=== PATIENT | female | born 2000 | race Caucasian/White ===

== ENCOUNTER 2021-11-20 10:30 | Emergency (ER) | payer OTHER ==
[2021-11-20 11:13] LABS: HEMOGLOBIN 14.3 gm/dl (12.3-15.3); RED BLOOD COUNT 5.71 M/UL (4.00-5.10); WHITE BLOOD COUNT 5.4 K/UL (4.5-11.0)
[2021-11-20 11:34] LABS: BUN/CREATININE RATIO 7 (0-10)
== END 2021-11-20 15:35 | disposition home or self-care (01) ==
LOC: ER1 10:30
PROVIDERS: Physician Assistant
DX: R00.0 Tachycardia, unspecified (principal); Z86.16 Personal history of COVID-19
CPT/HCPCS: 71045; 80053; 81001; 82550; 82553; 83874; 84439; 84443; 84484; 84703; 85025; 85379; 87081; 87086; 87880; 93005; 99284; J7030; Q9967